=== PATIENT | male | born 1995 | race Caucasian/White ===

== ENCOUNTER → 2018-09-16 | Outpatient (CLI) | payer BC, OTHER ==
[~2018-09-16] VITALS: Ht 182.9 cm; Wt 81.2 kg
[~2018-09-16] MED LIST: ASPIRIN325 PO; IBUPROFEN 600600 M1 PO; TOPROL XL100 MG PO
--- NOTE | ~2018-09-16 | P ---
[facility] [place] [address] PROCEDURE REPORT Name: ZENAIDAKIMMY BRENDA Room #: [facility]#: [id number] Admission: 09/16/18 ������������������ Attend Phys: Ottoniel Monson MD Discharge: ������������������ Date of : [birth year] Report #: [id number] THIS REPORT FOR: //name// CC: Carmelo Monson PREOPERATIVE DIAGNOSIS: Palpitations. POSTOPERATIVE DIAGNOSIS: Typical atrioventricular yvonne reentrant tachycardia. PROCEDURES PERFORMED: 1. Comprehensive EP study, CPT code 50596. 2. SVT ablation, CPT code 51911. 3. EP with left atrial pacing and recording, CPT code 29960. 4. Program and stimulation and pacing after IV drug infusion, CPT code 67963. 5. 3D mapping, CPT code 05635. HISTORY: The patient is a 23-year-old with a history of presyncopal symptoms and palpitations, who has presented to the Emergency Room multiple times. He recently wore a ekg monitor tech, which showed no clear SVT. He is here for EP study and possible ablation. ANESTHESIA: The patient underwent MAC anesthesia with no anesthesia related complications. DESCRIPTION OF PROCEDURE: The patient underwent informed consent. We discussed the details of the procedure including the risks, which include but not limited to bleeding, infection, vascular damage, cardiac perforation and pneumothorax. We also discussed that as we had not seen anything on any cardiac monitoring that I felt that the likelihood of finding an arrhythmia was going to be unlikely. He understood these risks and is willing to proceed. Preprocedure while the patient was having his IV placed, he did have a slight vagal reaction where he became diaphoretic and bradycardic with heart rates in the 40s. He said that he often gets these types of symptoms at home. Next, the patient was brought to the EP laboratory in a fasting and sedated state, prepped and draped in a sterile fashion. I injected lidocaine at the right groin region and obtained access to the right femoral vein x 4. I placed three 6-Tajik short sheaths and a 7-Tajik short sheath under modified Seldinger technique. Next, under fluoroscopy, I placed 3 quadripolar catheters at the HRA, His and RV positions and a decapolar catheter easily in the coronary sinus. At baseline, the patient was in sinus rhythm with sinus cycle length of 1075 milliseconds, ID interval 200 milliseconds, QRS duration 85 milliseconds and QT interval 425 milliseconds. The AH interval was 123 milliseconds and HV interval [facility] [address] [place] [address] PROCEDURE REPORT Name: KIMMY ESTEVEZ Room #: [facility]#: [id number] Admission: 09/16/18 ������������������ Attend Phys: Ottoniel Monson MD Discharge: ������������������ Date of : 95 Report #: [id number] was 40 milliseconds. Next, atrial burst pacing was performed and AV block was noted at 660 milliseconds. AV yvonne ERP was noted at 480 milliseconds at a 700-millisecond basic drive cycle length. Next, ventricular pacing was performed and at baseline, there was no evidence of VA conduction. Next, isoproterenol was started at 2 mcg per minute. Atrial burst pacing was performed and AV block was noted at 250 milliseconds. Atrial ERP was noted at 270 milliseconds at a 500-millisecond basic drive cycle length. There were no AV yvonne echoes noted. Ventricular pacing was performed and VA block was now less than 270 milliseconds. Ventricular ERP was noted at 180 milliseconds at a 400-millisecond basic drive cycle length. VA conduction was both midline and decremental. Next, I delivered double atrial extrastimuli and to my surprise, he started having what appeared to be double AV yvonne echoes. I performed double atrial extrastimuli for multiple pacing cycle lengths and I could only get 2 AV yvonne echoes in a row. I do not feel that this was sufficient for an ablation. Isoproterenol was increased to 4 mcg per minute and I continued to give double atrial extrastimuli and now I would get anywhere from 5-10 beats of what appeared to be AV yvonne reentrant tachycardia. There was another episode that was 15 beats in duration. Given the short duration, I could not perform entrainment, but everything looked consistent with typical AV yvonne reentrant tachycardia. Of note, all of these episodes would consistently terminate with an atrial signal which was further evidence of AVNRT. Next, we continued to aggressively pace and I continued giving a double atrial extrastimuli and at a drivetrain at 350 milliseconds/240/200, the patient finally went into sustained SVT with a tachycardia cycle length of 280 milliseconds with a septal VA time of 35 milliseconds. I was able to perform ventricular entrainment twice and this demonstrated a VAHV response consistent with typical AV yvonne reentrant tachycardia. As mentioned above, I was quite surprised to induce this. As such, the patient was prepped for ablation. I removed my HRA catheter and sheath and placed a SR0 sheath and a 4 mm Biosense Momin ablation catheter into the right atrium. I created a detailed 3D geometry of the right atrium with specific emphasis of the His bundle, slow pathway region and coronary sinus ostium. I performed ablation at 50 blue and 55 degrees. A total of 11 lesions were performed. During my first 4 merchant, the patient had intermittent junctionals during each of these merchant lasting about 20 seconds. Some of these actually looked like the patient went into AVNRT during the merchant. I performed an additional 6 ablation lesions at this site slightly superior and posterior to the areas of junctional rhythm and these last several merchant did not result in any junctionals, but were at sites of good electrograms and I did eliminate most of these signals. As such, post-ablation testing was performed. POST-ABLATION TESTING: The patient was immediately started back on isoproterenol 4 mcg per minute. AV block was less than [address] [facility] [address] [place] [address] PROCEDURE REPORT Name: SUZETTE ESTEVEZSHTOSHA WEEKSORY Room #: [facility]#: [id number] Admission: 09/16/18 ������������������ Attend Phys: Ottoniel Monson MD Discharge: ������������������ Date of : 95 Report #: [id number] yvonne ERP was at 230 milliseconds at a 400-millisecond basic drive cycle length. I performed double atrial extrastimuli from multiple cycle lengths and we could no longer get any AV yvonne echoes nor did we get any of these double AV yvonne echoes. I then turned the isoproterenol down to 3 mcg per minute, AV block was noted to be less than 220 milliseconds. Isoproterenol was then turned to 2 mcg per minute and again with double atrial extrastimuli, we could no longer induce any echoes nor any SVT. On 2 of isoproterenol, AV block was less than 240 milliseconds and atrial ERP was at 180 at 300-millisecond basic drive cycle length. As such, isoproterenol was turned off, we continued testing and we could no longer induce SVT. Post-ablation, the patient was in sinus rhythm with sinus cycle length of 520 milliseconds, ID interval of 155 milliseconds, QRS duration 80 milliseconds, QT interval 290 milliseconds, AH interval 90 milliseconds, HV interval 40 milliseconds. As such, the procedure was concluded. There was no evidence of recurrent SVT. Catheters and sheaths were pulled and hemostasis was obtained. The patient awoke neurologically and hemodynamically intact. No complications and no significant bleeding. CONCLUSIONS: 1. Successful ablation of typical AV yvonne reentrant tachycardia. 2. Normal SA yvonne function. 3. Normal AV yvonne function. 4. Normal His-Purkinje function. 5. No other inducible arrhythmias on or off isoproterenol. 6. The patient likely also has a component of vasovagal syncope as evidenced in preoperative holding while getting a peripheral IV placed with symptoms similar to what he has experienced in day-to-day life. PLAN: 1. The patient will be discharged home off beta yuki therapy. 2. We emphasized the importance of staying well hydrated given that the patient likely also has a component of vasovagal symptoms. ��������������������������������������������� ���������������������������������������� By: ��������������������������������������������� [id number] Ottoniel Monson MD /nt
[2018-09-16 07:09] VITALS: BP 135/85
[2018-09-16 07:10] LABS: ABSOLUTE NEUTROPHILS 3.7 thou/uL (1.4-8.2); BASOPHILS 0.4 % (0.0-2.0); EOSINOPHILS 7.1 % (0.0-3.0); HEMATOCRIT 42.2 % (42.0-52.0); HEMOGLOBIN 14.4 gm/dL (14.0-18.0); LYMPHOCYTES 38.6 % (24.0-44.0); MCH 30.3 pg (26.0-34.0); MCHC 34.2 g/dL (28.0-37.0); MCV 88.6 fL (80.0-100.0); MONOCYTES 9.5 % (1.0-8.0); PLATELET COUNT 226 thou/uL (150-400); POLYS 44.4 % (36.0-66.0); RBC 4.76 mil/uL (4.50-6.00); RDW 12.1 % (10.5-14.5); WBC 8.2 thou/uL (4.0-11.0)
[2018-09-16 07:22] LABS: CALCIUM 9.5 mg/dL (8.5-10.1); POTASSIUM 3.8 mmol/L (3.5-5.1)
[2018-09-16 07:23] LABS: APTT 26.4 Seconds (24.5-32.8); PROTIME 10.2 Seconds (9.3-11.4)
[2018-09-16 07:29] LABS: ALBUMIN 3.9 g/dL (3.4-5.0); TOTAL BILIRUBIN 0.7 mg/dL (<0.1-1.0); TOTAL PROTEIN 7.5 g/dL (6.4-8.2)
== END | disposition home or self-care (01) ==
LOC: CATH 06:52
PROVIDERS: Internal Medicine Cardiovascular Disease
DX: I47.1 Supraventricular tachycardia (principal); Z98.890 Other specified postprocedural states; Z79.82 Long term (current) use of aspirin; Z79.899 Other long term (current) drug therapy; Z87.891 Personal history of nicotine dependence
CPT/HCPCS: 62110; 62900; 70005

== ENCOUNTER 2018-10-08 12:43 | Emergency (ER) | payer BC, OTHER ==
[~2018-10-08] VITALS: Ht 182.9 cm; Wt 83.9 kg
[2018-10-08] MEDS ORDERED: VITAMINC500 PO (13:05)
[2018-10-08 13:25] LABS: HEMOGLOBIN 13.7 gm/dL (14.0-18.0); MCH 30.3 pg (26.0-34.0); MCHC 34.3 g/dL (28.0-37.0); MCV 88.2 fL (80.0-100.0); RBC 4.54 mil/uL (4.50-6.00); RDW 12.4 % (10.5-14.5); WBC 6.2 thou/uL (4.0-11.0)
[2018-10-08 13:29] LABS: CALCIUM 9.9 mg/dL (8.5-10.1); CREATININE 0.9 mg/dL (0.7-1.3); POTASSIUM 3.4 mmol/L (3.5-5.1)
[2018-10-08 13:35] LABS: ALBUMIN 4.4 g/dL (3.4-5.0); DIRECT BILIRUBIN 0.1 mg/dL (<0.1-0.3); TOTAL BILIRUBIN 0.7 mg/dL (<0.1-1.0); TOTAL PROTEIN 7.5 g/dL (6.4-8.2)
[2018-10-08 15:09] VITALS: BP 114/80
--- NOTE | 2018-10-08 23:33 | EKG ---
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1995 Requested By: Marisela Franks Order Number: [id number] MD: Ottoniel Monson Measurements Intervals [place] Rate: 64 P: 72 [place]: 180 QRS: 73 QRSD: 89 T: 5 QT: 387 QTc: 400 Interpretive Statements Sinus arrhythmia No previous ECG available for comparison Electronically Signed On 10-08-2018 23:33:03 CDT by Ottoniel Monson [email or web address] ��������������������������������������������� <ELECTRONICALLY SIGNED> ���������������������������������������� By: Ottoniel Monson MD ��������������������������������������������� 10/08/18 [id number] MD LYRIC Felix
== END 2018-10-08 15:10 | disposition home or self-care (01) ==
LOC: ER 12:43
PROVIDERS: Emergency Medicine
DX: R00.2 Palpitations (principal); Z87.891 Personal history of nicotine dependence

== ENCOUNTER → 2018-10-10 | Outpatient (CLI) | payer BC, OTHER ==
[~2018-10-10] MED LIST changes: +VITAMINC500 PO
[2018-10-10 09:44] VITALS: BP 146/77
[2018-10-10 10:17] VITALS: BP 126/69
== END | disposition home or self-care (01) ==
LOC: CATH 07:23
DX: R00.2 Palpitations (principal); R55 Syncope and collapse; Z79.899 Other long term (current) drug therapy; Z87.891 Personal history of nicotine dependence; Z98.890 Other specified postprocedural states